=== PATIENT | female | born 1980 | race Caucasian/White ===

== ENCOUNTER 2018-05-08 08:46 | Day surgery (SDC) | payer OTHER ==
[~2018-05-08] VITALS: Ht 165.1 cm; Wt 80.9 kg
[~2018-05-08 08:46] MED LIST: CeFAZolin 2 GM/DEXTROSE 50 ML IV ONE; RINGERS SOLUTION,LACTATED 1,000 ML IV ONE
[2018-05-08] MEDS ORDERED: PROPOFOL 1% 20 ML VIAL IVP ONE (08:47)
[2018-05-08] MEDS ORDERED: FentaNYL CITRATE-PF 100 MCG/2 ML VIAL IVP ONE (08:47)
[2018-05-08] MEDS ORDERED: LIDOCAINE/PF 2% 5 ML VIAL IM ONE (08:47)
[2018-05-08] MEDS ORDERED: MIDAZOLAM HCL 2 MG/2 ML VIAL IVP ONE (08:47)
[2018-05-08] MEDS ORDERED: BUPIVACAINE HCL/PF 0.5% 30 ML VIAL ONE (10:57)
[2018-05-08] MEDS ORDERED: LIDOCAINE 2%/EPI 1:200,000/PF 20 ML VIAL ONE (10:57)
[2018-05-08] MEDS ORDERED: ACETAMINOPHEN 500 MG TABLET PO PRN (12:00)
== END 2018-05-08 13:30 | disposition home or self-care (01) ==
LOC: SURGERY 08:46
PROVIDERS: ATTEND Surgery
DX: D17.21 Benign lipomatous neoplasm of skin and subcutaneous tissue of right arm (principal); Z86.11 Personal history of tuberculosis; Z79.899 Other long term (current) drug therapy; Z98.890 Other specified postprocedural states
CPT/HCPCS: 24071; 84703; 88304; J0690; J2250; J2704; J3010; J3490 ×2; J7120